=== PATIENT | female | born 1990 | race Caucasian/White ===

== ENCOUNTER 2024-09-19 06:27 | Inpatient (IN) | payer SELFPAY ==
[2024-09-18] VITALS (26 sets, daily range): BP systolic 132–161; BP diastolic 80–100; PULSE 87–115; RESP 16–18; TEMP 36.9–37; O2SAT 93–100; BMI 30.1
[2024-09-18] MEDS: Lactated Ringers 1,000 ML 999 ML IV (20:15)
--- NOTE | 2024-09-18 20:20 | US_ITS ---
ACR Level 3 findings have been noted. An addendum which confirms receipt of the report will follow. STUDY: SECOND AND THIRD TRIMESTER OBSTETRICAL ULTRASOUND REASON FOR EXAM: Female, 33 years old 31.5 weeks with vaginal bleeding TECHNIQUE: Transabdominal and transvaginal PRIOR ULTRASOUND: None. FINDINGS: There is a single intrauterine fetus. The fetus is in a breech presentation. There is demonstrated cardiac activity with a heart rate of 145 bpm. There is a normal amniotic fluid volume. The amniotic fluid index (GANESH) is 21.9 cm. The placenta is anterior and not low-lying. The cervix measures 1.4 cm in length and there is trace endocervical free fluid is otherwise closed.. The bilateral adnexal regions are normal. US/OB Limited (No Biometrics) IMPRESSION: Living intrauterine with estimated gestational age of 32 weeks and 6 days. Shortened cervix concerning for cervical incompetence. Breech presentation. Electronically Signed: Luis Angel Wilks MD at 22:09 EST ,
[2024-09-18 20:33] LABS: Absolute Lymphocyte Count 1.23 X10^3/uL (0.83-4.51); Absolute Neutrophil Count 6.9 X10^3/uL (2.0-7.7); Basophil# 0.03 X10^3/uL; Basophil% 0.3 % (0-1); Eosinophil# 0.11 X10^3/uL; Eosinophils% 1.2 % (0-5); Hematocrit 33.8 % (37-47); Hemoglobin 11.3 g/dL (12.0-15.0); Lymphocyte # 1.23 X10^3/ul (0.83-4.51); Lymphocyte % 13.7 % (19-41); Mean Corp Hgb Conc 33.4 g/dL (32-36); Mean Corpuscular Hgb 27.5 pg (27.0-32.0); Mean Corpuscular Volume 82.2 fL (81-99); Mean Platelet Vol. 9.3 fl (6.2-12.0); Monocyte# 0.58 X10^3/uL; Monocyte% 6.5 % (0-10); NRBC Flagged by Analyzer 0 % (0-5); Neutrophil # 6.92 X10^3/uL (2.7-7.7); Neutrophil % 77.4 % (47-70); Platelet Count 257 K/mm3 (150-450); RBC Distribution Width SD 41.2 fl (35.1-43.9); Red Blood Count 4.11 M/mm3 (4.2-5.4)
--- NOTE | 2024-09-18 20:38 | OB.TRI.NOTE ---
HPI - General General Date of Admission: 09/18/24 Date of Service: 09/18/24 Chief Complaint: vaginal bleeding HPI Narrative TOBI EPSTEIN, is a 33 F who presents with spontaneous vaginal bleeding. Was eating dinner and had a sudden onset of vaginal bleeding that soaked her clothes. No pain or contractions. This is her 7th baby. Has had no complications. Vaginal delivery x 6. All term and less than 6 hours. Pre E with the first . None since. care in [place]. Put on a pad and came to the hospital. The pad was saturated on arrival. HR reassuring. No contractions. Anterior placenta noted on bedside US and foot near the cervix. Fetus is footling breech and active. On speculum exam there was a moderated amount of old blood. Vaginal tissue collapses and makes visualization of the cervix difficult. It did not appear to be significantly dilated. O positive blood type. She states she has had a hard cough for about 3-4 weeks. No fever, chills or other symptoms but a lingering cough. Is not taking any cold medications. Initial BP was elevated. No CHANEL or vision changes and has not had any other elevated BPs this . No previa on formal US GANESH 21 Cervical length 1.4 cm Clot posterior cervical exam 2/-3 membranes palpated with foot present. She is yudy q 2-5 minutes but not feeling them. Discussed PTL vs abruption with patient. Recommend transfer to [facility] due to early gestation age and labor. Patient is 8 hours from home with her whole family. Concerned about being admitted so far from home for a prolonged time. Wants to to discussed situation with OB in [place]. She is considering driving back to [place] for admission and continued care. Discussed the risk of PPROM, continued labor with rapid delivery of a baby. Also footling breech presentation is a risk for cord prolapse. After discussing her situation with her husbands and primary OB patient is refusing transport to [place]. She would like to be monitored overnight as her bleeding is very minimal and she is not in pain. If she does not continue to labor or bleed she is planning to leave [facility] in the morning and drive back to [place]. She is agreeable to BMZ and understands she needs to get the second dose at 24 hours for full benefit. Also aware of the risk of delivery while driving home. Maternal Data Information Final RICKEY: 11/07/24 Final RICKEY Source: US <20 weeks Gestational age: 32+6 PFSH PFSH Home Medications ?Medication ?Instructions ?Recorded ?Last Taken ?Type nitrofurantoin 100 mg PO DAILY 09/18/24 09/18/24 History monohydrate/macrocrystals 100 mg capsule (Macrobid) vits,calcium 21-iron fum 1 tab PO DAILY nutrition 09/18/24 09/18/24 History 14 mg iron-folic acid 400 mcg tablet ( Complete) Allergy/AdvReac Type Severity Reaction Status Date / Time No Known Allergies Allergy Verified 09/18/24 20:50 History 10 Elective abortions Hx Para 6 Spontaneous abortions 3 Hx # Term Pregnancies 6 Ectopic pregnancies Hx # Pregnancies 0 Multiple births # of living children 6 ROS Constitutional Constitutional: Denies chills, fever(s) or headache(s) Cardiovascular Cardiovascular: Denies chest pain or dyspnea Respiratory/Chest Respiratory/Chest: Reports cough; Denies chest congestion Gastrointestinal Gastrointestinal: Denies abdominal pain, constipation, diarrhea, nausea or vomiting Genitourinary Genitourinary: Denies dysuria Neurologic Neurologic: Denies dizziness or weakness Psychiatric Psychiatric: Reports none Physical Exam Const alert, oriented x3 and no apparent distress General Appearance: cooperative, comfortable and well kempt Orientation / Consciousness: awake, oriented to person and oriented to place Exam Limitations: no limitations HEENT normocephalic and head/scalp atraumatic Eyes PERRL and EOMs intact bilaterally Neck full ROM Resp normal respiratory effort GI soft to palpation and non-tender Inspection: gravid external exam normal Narrative: moderated amount of dark blood in posterior vaginal vault. Multiparous cervix difficult to visualize Extremity normal to inspection and full ROM Skin no rashes or lesions noted Neuro oriented x3, CN's II-XII intact bilaterally and moves all extremities Psych mental status grossly normal and thought process normal NST FHR Rate Baby A Baseline: 145 Variability:: Moderate Accelerations:: 15 x 15 Decelerations:: None NST Reactive:: Yes FHR Category:: Category I Uterine Activity:: irritable Assessment & Plan (1) 32 weeks gestation of : (2) Vaginal bleeding during , antepartum:
[2024-09-18 20:53] LABS: AST(SGOT) 16 U/L (15-37); Alanine Aminotransfer ALT/SGPT 19 U/L (13-56); Creatinine, Serum 0.64 mg/dL (0.55-1.02); EST Glomerular Filtration Rate 111 mL/min (>60); Est Glom Filt Rate - Afr Amer 135 mL/min (>60); Estimated Creatinine Clearance 143.91 ml/min; Uric Acid 3.6 mg/dL (2.6-6.0)
[2024-09-18 20:56] LABS: Fibrinogen 358 mg/dl (203-444); Partial Thromboplast Time 27.1 Seconds (24.1-36.2)
[2024-09-18] MEDS: Lactated Ringers 1,000 ML 100 ML IV (21:45)
[2024-09-18] MEDS: Betamethasone/Betamethasone 30 MG/5 ML Vial 12 MG IM (22:42)
[2024-09-19] VITALS (21 sets, daily range): BP systolic 108–154; BP diastolic 65–116; PULSE 79–124; RESP 16; TEMP 36.1–36.7; O2SAT 96–100
--- NOTE | 2024-09-19 06:46 | PLAC_PTH ---
PATIENT: TOBI EPSTEIN LOC: [facility] U#:[id number] AGE/SX: 33/F ROOM: WP008 RE09/19/[address]: Dr. Jigna Luque MD : 1990 BED: 1 DIS: 09/20/2024 SPEC #: [id number] RECD: 09/19/24 12:37 STATUS: ROSARIO REQ #: [id number] EUGENE: 09/19/24 06:[address]: Jigna Luque DEPT: SURGICAL PATHOLOGY RECD BY: Jocelyn Santos ENTERED: 09/20/24 10:39 SP TYPE: PLACENTA OTHR DR: No Primary Care Phys Tissues: Placenta, NOS Procedures: Surgery Specimen Level V HEADER OPERATION: Primary section PRE-OP DIAGNOSIS: Suspected abruption TISSUE SUBMITTED: Placenta MICROSCOPIC DIAGNOSIS Placenta: Placental disc - third trimester placenta (549 gm). * Focal villous immaturity. * Focal intervillous hemorrhage. * Focal small intervillous fibrin thrombus. * Focal attached maternal surface organizing blood clot (4 x 3.5cm in greatest dimension) suggestive of abruption. Membranes - no pathologic diagnosis. Umbilical cord - trivascular umbilical cord, three blood vessels and no pathologic diagnosis. PW. 09/22/2024 MICROSCOPIC DESCRIPTION Slides are reviewed. GROSS DESCRIPTION SPECIMEN: PLACENTA / CLINICAL INFORMATION: A. Weight: 2.5 kg B. Gestational Age: 32 weeks C. Sex: Male PLACENTAL WEIGHT (POST FIXATION): 549 gm PLACENTAL DIMENSIONS: 16 x 16 x 3.5 cm PLACENTAL SHAPE: Usual ovoid PLACENTAL WEIGHT FOR GESTATIONAL AGE: Within 10-99th percentile (over/under percentile) MEMBRANES - Present A. Insertion: Marginal B. Site of rupture from edge: at the margin of placental disc C. Color of membrane: Heart-ricardo D. Abnormalities: None UMBILICAL CORD - Present A. Color: Heart-ricardo B. Insertion: Paracentral C. Length: 34 cm D. Diameter: 1.2 cm E. Number of vessels: Three F. Abnormalities: None PLACENTAL DISC - Present A. Color of surface: Heart-ricardo B. surface abnormalities: None C. Maternal cotyledons: Focal heart-yellowish area measuring 4 x 3.5cm in the peripheral portion of placenta. D. Attached retro placental clot: No clot E. Cut surface: Dark red and spongy F. Lesions: None G. Separate clot: Absent SECTIONS SUBMITTED: (6 cassettes) 1. Membrane roll 2. Cord, maternal end, heart-yellowish firm area on maternal surface 3. Cord, end, heart-yellowish firm area on maternal surface 4. Placental disc, and maternal surfaces 5. Placental disc, and maternal surfaces 6. Placental disc, and maternal surfaces SJ.mr 09/21/2024 TC:5 CPT: 01693
[2024-09-19] MEDS: Bupiv/Epi 0.25% 30 ML Vial (08:20)
--- NOTE | 2024-09-19 08:52 | EX.PCM.OBRPT ---
Assessment & Plan (1) Placental abruption in third trimester: (2) labor in third trimester: QUALIFIERS: labor delivery status: with delivery in third trimester Fetus number: single or unspecified fetus Qualified Code(s): O60.14X0 - labor third trimester with delivery third trimester, not applicable or unspecified (3) Vaginal bleeding during , antepartum: (4) 32 weeks gestation of : Maternal Data Information Final RICKEY: 11/07/24 Final RICKEY Source: US <20 weeks Gestational age: 32+6 Operative Report (OB) Cecarean Details Procedure Type: low transverse Date of Procedure: 09/19/24 Procedure Start Time: 06:42 Procedure Stop Time: 07:38 Time of Delivery: 06:46 Pre-Operative Diagnosis: Breech ( labor, placental abruption) Post-Operative Diagnosis: Same as Pre-operative diagnosis Classification: Stat Type of Anesthesia: Spinal Special Medications: Hemoblast Antibiotic Given: Ancef 2 grams IV x1 Drain: Wooten to straight drain Estimated Blood Loss: 800 cc Findings Description of surgery: Patient taken to the OR where wooten was placed. heart rate had always been Cat I which permitted Spinal anesthesia which was quickly place in a side lying position. She was then placed in a supine position with a left tilt. Betadine was used for abdominal prep and then draped in the normal sterile fashion. A Pfannenstiel incision was made and carried down to the underlying fascia. The fascia was incised in the midline and extended laterally. The fascia was dissected from the muscle. The muscles divided in the midline. The peritoneum was entered bluntly and extended manually. A bladder blade was placed. A bladder flap was created. A low transverse incision was made and extended bluntly. A large clot protruded through the incision. The amniotic sac was was ruptured for clear fluid. The feet were at the incision and grasped. Initially difficult to deliver the feet as the uterus contracted. Once the hips were delivered the right and then left shoulders were delivered and he head followed easily. The cord was cut and clamped. The placenta delivered rapidly after delivery of the with another large clot present. The uterus was exteriorized and cleared of all clot and debris. The incision was repaired with 1-0 Vicryl x 2. A 3-0 vicryl was used to repair a serosal tear at the fundus. Hemoblast was placed over this laceration. The uterus was returned the abdomen. The gutter cleared of all clots. The peritoneum was closed with 2-0 Monocryl. The fascia was closed with 1-0 Vicryl. The subcutaneous tissue was reapproximated with 2-0 Monocryl The skin was closed with 4-0. I performed the major parts of the procedure with the RFNA assisting with retraction and closing the skin. The sponge lap and needle count was correct x 2 Surgical findings: Large clot present on entry into uterine cavity. 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
--- NOTE | 2024-09-19 09:15 | PCM.HP.OB ---
HPI - General General Date of Admission: 09/19/24 Date of Service: 09/19/24 Chief Complaint: vaginal bleeding HPI Narrative TOBI EPSTEIN, is a 33 F who presents with spontaneous vaginal bleeding. Was eating dinner and had a sudden onset of vaginal bleeding that soaked her clothes. No pain or contractions. This is her 7th baby. Has had no complications. Vaginal delivery x 6. All term and less than 6 hours. Pre E with the first . None since. care in [place]. Put on a pad and came to the hospital. The pad was saturated on arrival. HR reassuring. No contractions. Anterior placenta noted on bedside US and foot near the cervix. Fetus is footling breech and active. On speculum exam there was a moderated amount of old blood. Vaginal tissue collapses and makes visualization of the cervix difficult. It did not appear to be significantly dilated. O positive blood type. She states she has had a hard cough for about 3-4 weeks. No fever, chills or other symptoms but a lingering cough. Is not taking any cold medications. Initial BP was elevated. No CHANEL or vision changes and has not had any other elevated BPs this . No previa on formal US GANESH 21 Cervical length 1.4 cm Clot posterior cervical exam 260/-3 membranes palpated with foot present. She is yudy q 2-5 minutes but not feeling them. Discussed PTL vs abruption with patient. Recommend transfer to [facility] due to early gestation age and labor. Patient is 8 hours from home with her whole family. Concerned about being admitted so far from home for a prolonged time. Wants to to discussed situation with OB in [place]. She is considering driving back to [place] for admission and continued care. Discussed the risk of PPROM, continued labor with rapid delivery of a baby. Also footling breech presentation is a risk for cord prolapse. After discussing her situation with her husbands and primary OB patient is refusing transport to [place]. She would like to be monitored overnight as her bleeding is very minimal and she is not in pain. If she does not continue to labor or bleed she is planning to leave [facility] in the morning and drive back to [place]. She is agreeable to BMZ and understands she needs to get the second dose at 24 hours for full benefit. Also aware of the risk of delivery while driving home. Minimal bleeding or pain over night. Cat I tracing with intermittent contractions. At 6 am patient had a sudden onset of stronger contractions. On vaginal exam she was found to be completely dilated with bulging bag. foot palpated at bag. On bed side US double footing breech with cord by . Patient consented for emergent primary . Maternal Data Information Final RICKEY: 11/07/24 Gestational age: 32+6 PFSH PFSH Home Medications ?Medication ?Instructions ?Recorded ?Last Taken ?Type nitrofurantoin 100 mg PO DAILY 09/18/24 09/18/24 History monohydrate/macrocrystals 100 mg capsule (Macrobid) vits,calcium 21-iron fum 1 tab PO DAILY nutrition 09/18/24 09/18/24 History 14 mg iron-folic acid 400 mcg tablet ( Complete) Allergy/AdvReac Type Severity Reaction Status Date / Time No Known Allergies Allergy Verified 09/18/24 20:50 History 10 Elective abortions Hx Para 6 Spontaneous abortions 3 Hx # Term Pregnancies 6 Ectopic pregnancies Hx # Pregnancies 0 Multiple births # of living children 6 NST FHR Rate Baby A Variability:: Moderate Accelerations:: 15 x 15 Decelerations:: None NST Reactive:: Yes FHR Category:: Category I Uterine Activity:: intermittent contractions ROS Constitutional Constitutional: Denies chills, fever(s) or headache(s) Cardiovascular Cardiovascular: Denies chest pain or dyspnea Respiratory/Chest Respiratory/Chest: Reports cough; Denies chest congestion Gastrointestinal Gastrointestinal: Denies abdominal pain, constipation, diarrhea, nausea or vomiting Genitourinary Genitourinary: Denies dysuria Neurologic Neurologic: Denies dizziness or weakness Psychiatric Psychiatric: Reports none Vital Signs Vital Signs Vital Signs: 09/18/24 19:42 09/18/24 19:58 09/18/24 19:58 Temperature Temperature Source Pulse Rate 106 H Respiratory Rate Respiratory Pattern Blood Pressure 161/100 H 135/83 H Blood Pressure Mean BP Systolic 161 135 BP Diastolic 100 83 Blood Pressure Source Blood Pressure Position Blood Pressure Location Pulse Ox Oxygen Delivery Method 09/18/24 20:02 09/18/24 20:02 09/18/24 20:19 Temperature Temperature Source Pulse Rate 100 Respiratory Rate Respiratory Pattern Blood Pressure 151/93 H 137/87 H Blood Pressure Mean BP Systolic 151 137 BP Diastolic 93 87 Blood Pressure Source Blood Pressure Position Blood Pressure Location Pulse Ox Oxygen Delivery Method 09/18/24 20:19 09/18/24 20:23 09/18/24 20:23 Temperature Temperature Source Temporal Pulse Rate 106 H Respiratory Rate Respiratory Pattern Blood Pressure 137/87 H Blood Pressure Mean BP Systolic 137 BP Diastolic 87 Blood Pressure Source Blood Pressure Position Blood Pressure Location Pulse Ox Oxygen Delivery Method 09/18/24 20:23 09/18/24 20:23 09/18/24 20:23 Temperature Temperature Source Pulse Rate 100 Respiratory Rate 18 Respiratory Pattern Blood Pressure Blood Pressure Mean BP Systolic BP Diastolic Blood Pressure Source Blood Pressure Position Blood Pressure Location Pulse Ox 100 Oxygen Delivery Method 09/18/24 20:23 09/18/24 20:24 09/18/24 20:24 Temperature 98.6 F Temperature Source Pulse Rate 115 H Respiratory Rate Respiratory Pattern Blood Pressure Blood Pressure Mean BP Systolic BP Diastolic Blood Pressure Source Blood Pressure Position Blood Pressure Location Pulse Ox 96 Oxygen Delivery Method 09/18/24 20:26 09/18/24 20:26 09/18/24 20:29 Temperature Temperature Source Pulse Rate 102 H 103 H Respiratory Rate Respiratory Pattern Blood Pressure Blood Pressure Mean BP Systolic BP Diastolic Blood Pressure Source Blood Pressure Position Blood Pressure Location Pulse Ox 93 Oxygen Delivery Method 09/18/24 20:29 09/18/24 20:32 09/18/24 20:32 Temperature Temperature Source Pulse Rate 101 H Respiratory Rate Respiratory Pattern Blood Pressure Blood Pressure Mean BP Systolic BP Diastolic Blood Pressure Source Blood Pressure Position Blood Pressure Location Pulse Ox 97 94 Oxygen Delivery Method 09/18/24 20:33 09/18/24 20:33 09/18/24 21:15 Temperature Temperature Source Pulse Rate 107 H 93 Respiratory Rate Respiratory Pattern Blood Pressure 139/87 H Blood Pressure Mean BP Systolic 139 BP Diastolic 87 Blood Pressure Source Blood Pressure Position Blood Pressure Location Pulse Ox Oxygen Delivery Method 09/18/24 21:15 09/18/24 21:38 09/18/24 21:38 Temperature Temperature Source Pulse Rate 103 H Respiratory Rate Respiratory Pattern Blood Pressure Blood Pressure Mean BP Systolic BP Diastolic Blood Pressure Source Blood Pressure Position Blood Pressure Location Pulse Ox 98 99 Oxygen Delivery Method 09/18/24 21:45 09/18/24 21:45 09/18/24 21:50 Temperature Temperature Source Pulse Rate 101 H 111 H Respiratory Rate Respiratory Pattern Blood Pressure Blood Pressure Mean BP Systolic BP Diastolic Blood Pressure Source Blood Pressure Position Blood Pressure Location Pulse Ox 100 Oxygen Delivery Method 09/18/24 21:50 09/18/24 21:55 09/18/24 21:55 Temperature Temperature Source Pulse Rate 106 H Respiratory Rate Respiratory Pattern Blood Pressure Blood Pressure Mean BP Systolic BP Diastolic Blood Pressure Source Blood Pressure Position Blood Pressure Location Pulse Ox 100 100 Oxygen Delivery Method 09/18/24 22:00 09/18/24 22:00 09/18/24 22:05 Temperature Temperature Source Pulse Rate 106 H 107 H Respiratory Rate Respiratory Pattern Blood Pressure Blood Pressure Mean BP Systolic BP Diastolic Blood Pressure Source Blood Pressure Position Blood Pressure Location Pulse Ox 100 Oxygen Delivery Method 09/18/24 22:05 09/18/24 22:10 09/18/24 22:10 Temperature Temperature Source Pulse Rate 102 H Respiratory Rate Respiratory Pattern Blood Pressure Blood Pressure Mean BP Systolic BP Diastolic Blood Pressure Source Blood Pressure Position Blood Pressure Location Pulse Ox 100 100 Oxygen Delivery Method 09/18/24 22:15 09/18/24 22:15 09/18/24 22:20 Temperature Temperature Source Pulse Rate 98 99 Respiratory Rate Respiratory Pattern Blood Pressure Blood Pressure Mean BP Systolic BP Diastolic Blood Pressure Source Blood Pressure Position Blood Pressure Location Pulse Ox 100 Oxygen Delivery Method 09/18/24 22:20 09/18/24 22:25 09/18/24 22:25 Temperature Temperature Source Pulse Rate 95 Respiratory Rate Respiratory Pattern Blood Pressure Blood Pressure Mean BP Systolic BP Diastolic Blood Pressure Source Blood Pressure Position Blood Pressure Location Pulse Ox 100 99 Oxygen Delivery Method 09/18/24 22:30 09/18/24 22:30 09/18/24 22:35 Temperature Temperature Source Pulse Rate 100 110 H Respiratory Rate Respiratory Pattern Blood Pressure Blood Pressure Mean BP Systolic BP Diastolic Blood Pressure Source Blood Pressure Position Blood Pressure Location Pulse Ox 100 Oxygen Delivery Method 09/18/24 22:35 09/18/24 22:40 09/18/24 22:40 Temperature Temperature Source Pulse Rate 95 Respiratory Rate Respiratory Pattern Blood Pressure Blood Pressure Mean BP Systolic BP Diastolic Blood Pressure Source Blood Pressure Position Blood Pressure Location Pulse Ox 99 98 Oxygen Delivery Method 09/18/24 23:00 09/18/24 23:00 09/18/24 23:30 Temperature Temperature Source Pulse Rate 88 Respiratory Rate Respiratory Pattern Blood Pressure 132/80 H Blood Pressure Mean BP Systolic 132 BP Diastolic 80 Blood Pressure Source Blood Pressure Position Blood Pressure Location Pulse Ox 97 Oxygen Delivery Method 09/18/24 23:30 09/18/24 23:30 09/18/24 23:30 Temperature Temperature Source Pulse Rate 87 Respiratory Rate 16 Respiratory Pattern Blood Pressure Blood Pressure Mean BP Systolic BP Diastolic Blood Pressure Source Blood Pressure Position Blood Pressure Location Pulse Ox 94 Oxygen Delivery Method 09/18/24 23:30 09/19/24 05:24 09/19/24 05:24 Temperature 98.5 F Temperature Source Pulse Rate 113 H Respiratory Rate Respiratory Pattern Blood Pressure 138/85 H Blood Pressure Mean BP Systolic 138 BP Diastolic 85 Blood Pressure Source Blood Pressure Position Blood Pressure Location Pulse Ox Oxygen Delivery Method 09/19/24 05:25 09/19/24 05:25 09/19/24 05:26 Temperature Temperature Source Pulse Rate 99 Respiratory Rate 16 Respiratory Pattern Blood Pressure Blood Pressure Mean BP Systolic BP Diastolic Blood Pressure Source Blood Pressure Position Blood Pressure Location Pulse Ox 96 Oxygen Delivery Method 09/19/24 08:01 09/19/24 08:01 09/19/24 08:15 Temperature 97.0 F L Temperature Source Temporal Temporal Temporal Pulse Rate 80 Respiratory Rate 16 Respiratory Pattern Normal Blood Pressure 111/65 Blood Pressure Mean 80 BP Systolic BP Diastolic Blood Pressure Source Monitor Blood Pressure Position Semi-Fowlers Blood Pressure Location Left Arm Pulse Ox 100 Oxygen Delivery Method Room Air 09/19/24 08:15 09/19/24 08:30 09/19/24 08:45 Temperature 97.0 F L Temperature Source Temporal Pulse Rate 79 95 111 H Respiratory Rate 16 16 16 Respiratory Pattern Blood Pressure 109/73 124/94 H 145/116 H Blood Pressure Mean 85 104 125 BP Systolic BP Diastolic Blood Pressure Source Monitor Monitor Monitor Blood Pressure Position Semi-Fowlers Semi-Fowlers Semi-Fowlers Blood Pressure Location Left Arm Left Arm Left Arm Pulse Ox 100 99 99 Oxygen Delivery Method Room Air Room Air Room Air 09/19/24 09:00 Temperature Temperature Source Pulse Rate 113 H Respiratory Rate 16 Respiratory Pattern Blood Pressure 131/69 H Blood Pressure Mean 89 BP Systolic BP Diastolic Blood Pressure Source Monitor Blood Pressure Position Semi-Fowlers Blood Pressure Location Left Arm Pulse Ox 100 Oxygen Delivery Method Room Air Weight Weight: 89.902 kg Body Mass Index (BMI) 30.1 Physical Exam Const alert, oriented x3 and no apparent distress General Appearance: cooperative, comfortable and well kempt Orientation / Consciousness: awake, oriented to person and oriented to place Exam Limitations: no limitations HEENT normocephalic and head/scalp atraumatic Eyes PERRL and EOMs intact bilaterally Neck full ROM Resp normal respiratory effort GI soft to palpation and non-tender Inspection: gravid external exam normal Narrative: moderated amount of dark blood in posterior vaginal vault. Multiparous cervix difficult to visualize Extremity normal to inspection and full ROM Skin no rashes or lesions noted Neuro oriented x3, CN's II-XII intact bilaterally and moves all extremities Psych mental status grossly normal and thought process normal Labs Labs Labs: Blood Type O POSITIVE Antibody Screen NEGATIVE Hct 33.8 % (37-47) L Hgb 11.3 g/dL (12.0-15.0) L Obstetrics Ultrasound Assessment & Plan (1) Vaginal bleeding during , antepartum: (2) 32 weeks gestation of : (3) labor in third trimester: QUALIFIERS: Fetus number: single or unspecified fetus labor delivery status: with delivery in third trimester Qualified Code(s): O60.14X0 - labor third trimester with delivery third trimester, not applicable or unspecified PLAN: Plan Admitted from observations status for emergent primary
[2024-09-19] MEDS: Acetaminophen 500 MG Tablet 1000 MG PO ×3 (09:16→21:45)
[2024-09-19] MEDS: Ketorolac 30 MG/ML Syringe IV ×3 (09:17→21:45)
[2024-09-19] MEDS: Oxytocin 15 Units/NS 250ml 15 UNITS/250 ML IV.SOLN 83 UNITS IV (09:17)
[2024-09-19] MEDS: 0.9% Saline Lock 10 ML Syringe IV ×2 (09:17→21:45)
[2024-09-19] MEDS: Senna/Docusate Sodium 1 Tablet PO (12:26)
[2024-09-20] MEDS: Acetaminophen 500 MG Tablet 1000 MG PO (04:03)
[2024-09-20] MEDS: 0.9% Saline Lock 10 ML Syringe IV (04:04)
[2024-09-20] MEDS: Ketorolac 30 MG/ML Syringe IV (04:38)
[2024-09-20 04:40] VITALS: BP 134/88; PULSE 90; RESP 16; TEMP 36.4; O2SAT 97
[2024-09-20 04:52] LABS: Hematocrit 30.3 % (37-47); Hemoglobin 10.1 g/dL (12.0-15.0); Mean Corp Hgb Conc 33.3 g/dL (32-36); Mean Corpuscular Hgb 27.3 pg (27.0-32.0); Mean Corpuscular Volume 81.9 fL (81-99); Mean Platelet Vol. 9.4 fl (6.2-12.0); Platelet Count 221 K/mm3 (150-450); RBC Distribution Width CV 14.1 % (11.6-14.6); RBC Distribution Width SD 41.3 fl (35.1-43.9); White Blood Count 10.8 K/mm3 (4.4-11.0)
--- NOTE | 2024-09-20 07:29 | PCM.PN.OB ---
Subjective Subjective Doing well. Ambulating and voiding without difficulty. Mild lochia. Pumping. Baby in NICU Objective Data Objective Data Vital Signs: Vital Signs Temp Pulse Resp BP Pulse Ox O2 Del Method 97.6 F L 90 16 134/88 H 97 Room Air 09/20/24 04:40 09/20/24 04:40 09/20/24 04:40 09/20/24 04:40 09/20/24 04:40 09/20/24 04:40 Oxygen Delivery Method Room Air Weight: 89.902 kg Body Mass Index (BMI) 30.1 Intake & Output: Intake and Output for Last 24 Hours 09/18/24 09/19/24 09/20/24 23:59 23:59 23:59 Intake Total 1000 / 1000 1125 / 1125 Output Total 2950 / 2950 Balance 1000 / 1000 -1825 / -1825 Lab / Micro Data 09/20/24 04:40 09/18/24 20:15 Labs: Laboratory Results - last 24 hr 09/20/24 04:40: WBC 10.8, RBC 3.70 L, Hgb 10.1 L, Hct 30.3 L, MCV 81.9, MCH 27.3, MCHC 33.3, RDW Std Deviation 41.3, RDW Coeff of Tiffany 14.1, Plt Count 221, MPV 9.4 ROS Constitutional Constitutional: Denies fatigue, fever(s) or malaise Eyes Eyes: Denies change in vision ENT HEENT: Denies dizziness or headache(s) Cardiovascular Cardiovascular: Denies chest pain, dyspnea or lightheadedness Respiratory/Chest Respiratory/Chest: Denies cough or dyspnea Gastrointestinal Gastrointestinal: Denies change in bowel habits Genitourinary Genitourinary: Denies burning urination or genital lesions Integumentary Integumentary: Denies rash Neurologic Neurologic: Denies confusion, dizziness, headache(s), numbness or weakness Physical Exam Const alert General Appearance: cooperative GI GI Narrative: soft, moderate distention, fundus firm, appropriately tender. Abdominal bandage clean dry and intact Assessment & Plan (1) S/P : PLAN: Plan D/c home
--- NOTE | 2024-09-20 07:34 | PCM.DC.SUM ---
Providers Date of Admission: 09/19/24 Date of Discharge: 09/20/24 Primary Care Physician: No Primary Care Phys Reason For Visit: LABOR Diagnosis Discharge Diagnosis (1) S/P : Status: Acute Code(s): Z98.891 - History of uterine scar from previous surgery Plan D/c home Medications at Discharge Home Medications vits,calcium 21-iron fum 14 mg iron-folic acid 400 mcg tablet ( Complete) 1 tab PO DAILY nutrition 09/18/24 Hospital Course Operations section Procedures None Summary of Care Provided Minutes Spent on Discharge: 20 Hospital Course: Presented with vaginal bleeding. Found to be in labor but declined transport to another facility. Monitored over night for bleeding. Rapidly progressed to complete but was footling breech. Taken for Primary emergently. Uncomplicated delivery and . Physical Exam Const alert General Appearance: cooperative GI GI Narrative: soft, moderate distention, fundus firm, appropriately tender. Abdominal bandage clean dry and intact Weight / BMI Weight Weight: 89.902 kg Body Mass Index (BMI) 30.1 ABG / Lab / Microbiology Data 09/20/24 04:40 09/18/24 20:15 Laboratory: Laboratory Results - last 24 hr 09/20/24 04:40: WBC 10.8, RBC 3.70 L, Hgb 10.1 L, Hct 30.3 L, MCV 81.9, MCH 27.3, MCHC 33.3, RDW Std Deviation 41.3, RDW Coeff of Tiffany 14.1, Plt Count 221, MPV 9.4 D/C Instructions Discharge Diet: No restrictions May resume sexual activity in: 4-6 weeks Lifting Restrictions: 20 pounds Additional Activity Instructions: Nothing in the vagina for 4-6 weeks. You may return to work/school in 6 weeks. Call your doctor if your incision/area has: Continuous Slow Oozing, Sudden Increased Bleeding, Increased Pain/ Swelling, Increased Redness and Foul Smelling Discharge Call your doctor if you observe: Fever of 101 or Higher and Using more than 1 pad per hour (for 2 hours) Suture Line Care: Avoid Pulling/Pushing and Avoid Pinching/Bending Cleanse incision/area with: Keep Dressing Clean & Dry DC O2, CPAP, BIPAP Needs Home O2 Discharge instructions: No Please Follow Up With: Ashley Carter MD When: Call to make an appointment for an incision check in 1-2 [phone]. You will need a post check in 6 weeks. Meaningful Use Info Meaningful Use Meaningful Use Diagnoses (Choose all that apply): None applicable Ischemic Stroke Statin Dosing Therapy Reference: STATIN DOSE THERAPY REFERENCE: * Patients > 75 years receive moderate or high dose statin therapy. * Patients 75 years or YOUNGER should receive HIGH intensity statin dose unless contraindicated. You will be required to document reason for non-treatment if statin daily dose does not meet guidelines. HIGH DOSE STATIN THERAPY DAILY Atorvastatin > than or = to 40 mg Rosuvastatin > than or = to 20 mg Amlodipine + Atorvastatin > than or = to 2.5/40 mg Ezetimibe + Simvastatin 10/80 mg Simvastatin 80mg Discharge Plan Admission Admit Date/Time: 09/19/24 06:27 Primary Reason for Your Visit: labor Attending Provider: Jigna Luque Primary Care Provider: Care Physician,No Primary Discharge Orders/Prescriptions Prescriptions: Continued Complete 14 mg iron- 400 mcg tablet 1 tab PO DAILY Discontinued nitrofurantoin monohyd/m-cryst [Macrobid] 100 mg capsule 100 mg PO DAILY Referrals / Follow Up: Care Physician,No Primary [Primary Care Provider] - Disposition Disposition (needs filled in before D/C Order can be placed): Home, Self Care
[2024-09-20 08:00] VITALS: BP 141/87; PULSE 98; RESP 16; TEMP 36.2; O2SAT 98
[2024-09-22 14:04] LABS: Pathology Specimen OB SEE PATHOLOGY REPORT
== END 2024-09-20 08:54 | disposition home or self-care (01) | DRG 786 ==
LOC: WP 08:44
PROVIDERS: Admitting Provider Obstetrics & Gynecology; Referring Provider Obstetrics & Gynecology; Visit Provider Obstetrics & Gynecology
DX: O60.14X0 Preterm labor third trimester with preterm delivery third trimester, not applicable or unspecified (principal); O45.93 Premature separation of placenta, unspecified, third trimester; O32.8XX0 Maternal care for other malpresentation of fetus, not applicable or unspecified; Z3A.32 32 weeks gestation of pregnancy; Z37.0 Single live birth
CPT/HCPCS: 59025; 59050; 76815; 82565; 84450; 84460; 84550; 85025; 85027; 85384; 85730; 86850; 86900; 86901; 88307; 99221; A4216; G0378; J0702